=== PATIENT | female | born 1970 | race Two or more races ===

== ENCOUNTER 2020-07-19 18:47 | Emergency (ER) | payer MEDICAID ==
[~2020-07-19] VITALS: Ht 149.9 cm; Wt 66.7 kg
[~2020-07-19 18:47] MED LIST: Furosemide PO; LAC30LQ PO; OME20GT PO; SPIR25TA88 PO
[2020-07-19] MEDS ORDERED: SODIUM CHLORIDE 0.9% 1,000 ML IV ONE (19:21)
[2020-07-19] MEDS ORDERED: MORPHINE SULFATE 4 MG/ML SYR/VIAL IV ONE (19:30)
[2020-07-19 23:20] LABS: Basophils # (auto) 0.1 10 ^3/uL (0-0.2); Eosinophils # (auto) 0.2 10 ^3/uL (0-0.8); Hemoglobin 12.8 g/dL (12.2-16.2); Monocytes # (auto) 0.7 10 ^3/uL (0-1.3); Neutrophils # (auto) 3.5 10 ^3/uL (1.6-8.6); Nucleated Red Blood Cells % 0.1 %; Platelet Count (auto) 59 10^3/uL (140-450)
[2020-07-19 23:23] LABS: Basophils % (auto) 1.1 % (0.0-2.0); Eosinophils % (auto) 4.2 % (0.0-7.0); Hematocrit 36.8 % (36.0-46.0); Lymphocytes # (auto) 0.8 10 ^3/uL (0.4-5.4); Lymphocytes % (auto) 15.2 % (10.0-50.0); Mean Corpuscular Hemoglobin 38.1 pg (28.0-32.0); Mean Corpuscular Hgb Conc. 34.8 g/dL (32.0-36.0); Mean Corpuscular Volume 109.3 fL (80.0-100.0); Monocytes % (auto) 12.5 % (0.0-12.0); Red Blood Cells 3.37 10^6/uL (4.0-5.20); White Blood Cell 5.3 10^3/uL (4.4-10.8)
[2020-07-19 23:38] LABS: BUN/Creatinine Ratio 7.7; Calcium 7.8 mg/dL (8.5-10.1); Potassium 3.1 mmol/L (3.5-5.1)
[2020-07-19 23:41] LABS: Bilirubin, Total 7.8 mg/dL (0.2-1.0)
[2020-07-20] MEDS ORDERED: ONDANSETRON HCL 4 MG/2 ML VIAL ONE (02:21)
[2020-07-20] MEDS ORDERED: ONDANSETRON HCL 4 MG/2 ML VIAL IV ONE (02:30)
[2020-07-20 04:00] VITALS: BP 93/58
[2020-07-20] MEDS ORDERED: FUROSEMIDE 40 MG/4 ML VIAL IV ONE (04:00)
[2020-07-20] MEDS ORDERED: SPIRONOLACTONE 25 MG TAB PO ONE (04:00)
== END 2020-07-20 06:00 | disposition home or self-care (01) ==
LOC: ER 18:47
DX: K74.60 Unspecified cirrhosis of liver (principal); K80.20 Calculus of gallbladder without cholecystitis without obstruction; R60.1 Generalized edema; Z79.899 Other long term (current) drug therapy
CPT/HCPCS: 36415; 74176; 80053; 82150; 83605; 83690; 84702; 85025; 96374; 96375; 99284; J1940; J2270; J2405

== ENCOUNTER 2020-08-05 00:28 | Inpatient (IN) | payer MEDICAID ==
[2020-08-05] VITALS (7 sets, daily range): BP systolic 100–121; BP diastolic 54–63
[~2020-08-05] VITALS: Ht 149.9 cm; Wt 54.6 kg
[2020-08-05] MEDS ORDERED: HYDROcodone-ACET 10/325MG TAB PO ONE (02:00)
[2020-08-05 02:36] LABS: Urine Bacteria FEW /hpf (None Seen); Urine Blood Negative /uL (Negative); Urine Hyaline Cast MOD /lpf (0 - 2); Urine Mucus FEW (None Seen); Urine Specific Gravity 1.024 (1.001-1.035); Urine WBC 11 /hpf (0 - 5)
[2020-08-05 03:43] LABS: Eosinophils # (auto) 0.1 10 ^3/uL (0-0.8); Hemoglobin 11.6 g/dL (12.2-16.2); Lymphocytes # (auto) 0.5 10 ^3/uL (0.4-5.4); Monocytes # (auto) 0.9 10 ^3/uL (0-1.3); Nucleated Red Blood Cells % 0.1 %
[2020-08-05 03:46] LABS: Basophils # (auto) 0 10 ^3/uL (0-0.2); Basophils % (auto) 0.5 % (0.0-2.0); Hematocrit 32.7 % (36.0-46.0); Mean Corpuscular Hemoglobin 37.3 pg (28.0-32.0); Mean Corpuscular Hgb Conc. 35.3 g/dL (32.0-36.0); Mean Corpuscular Volume 105.7 fL (80.0-100.0); Monocytes % (auto) 10.7 % (0.0-12.0); Neutrophils # (auto) 6.9 10 ^3/uL (1.6-8.6); Neutrophils % (auto) 81.8 % (37.0-80.0); White Blood Cell 8.4 10^3/uL (4.4-10.8)
[2020-08-05 04:03] LABS: Lactic Acid w/Reflex 2.4 mmol/L (0.4-2.0)
[2020-08-05 04:04] LABS: Albumin 1.9 g/dL (3.4-5.0); Calcium 8.2 mg/dL (8.5-10.1); Potassium 4.2 mmol/L (3.5-5.1)
[2020-08-05 04:07] LABS: BUN/Creatinine Ratio 10.7; Bilirubin, Total 7.9 mg/dL (0.2-1.0); Total Protein 7.2 g/dL (6.4-8.2)
[2020-08-05 04:16] LABS: Platelet Count (auto) 45 10^3/uL (140-450)
[2020-08-05] MEDS ORDERED: SODIUM CHLORIDE 0.9% 1,000 ML IV SCH (06:45)
[2020-08-05] MEDS ORDERED: MORPHINE SULFATE 4 MG/ML SYR/VIAL IV PRN (07:00)
[2020-08-05] MEDS ORDERED: ONDANSETRON HCL 4 MG/2 ML VIAL IV PRN (07:00)
--- NOTE | 2020-08-05 08:30 | NUR ---
MS admit from ER [place] admitted to Telemetry unit after SBAR received. Patient oriented to Virginia Fong, primary RN, unit, room, bed, and unit policies regarding patient care and visiting hours.Patient placed on bedside oxygen, weighed by bedscale and encouraged to call if they need something. All questions and concerns addressed, patient verbalized understanding. Note: PT IS AWARE OF NPO STATUS.
[2020-08-05] MEDS: cefTRIAXone 1GM/50ML D5W 50 ML IV SCH (09:17)
[2020-08-05] MEDS ORDERED: PANTOPRAZOLE 40 MG/10 ML VIAL INJ IV SCH (10:00)
[2020-08-05 11:03] LABS: INR 1.95 (0.9-1.15)
--- NOTE | 2020-08-05 12:55 | NUR ---
PAGED DR BUENROSTRO RE: PT'S LOW PLATELETS AND ELEVATED INR. MD INFORMED THAT PT IS SCHEDULED FOR PARACENTESIS, BUT PER RADIOLOGY PLATELETS NEEDS TO BE CORRECTED FIRST. PARACENTESIS WILL BE RESCHEDULED FOR TOMORROW. NEW ORDER RECEIVED.
[2020-08-05] MEDS: SODIUM CHLORIDE 0.9% 1,000 ML IV SCH (13:15)
[2020-08-05] MEDS ORDERED: PHYTONADIONE (VIT K)10 MG/ML 1ML VIAL SUBCUT ONE (13:15)
[2020-08-05] MEDS ORDERED: PHYTONADIONE(VitK) ORAL Susp 10mg/10ml(1mg/ml) PO ONE (13:15)
[2020-08-05] MEDS ORDERED: FURO20TA3 PO (15:15)
[2020-08-05] MEDS ORDERED: POTA-180 PO (15:15)
[2020-08-05] MEDS ORDERED: SPIR100T4 PO (15:15)
--- NOTE | 2020-08-05 17:30 | NUR ---
PLATELETS TRANSFUSION IN PROGRESS PT RESTING COMFORTABLY. DENIES PAIN OR SOB PT INFORMED OF SIGNS AND SYMPTOMS OR BLOOD TRANSFUSION REACTION AND IS INSTRUCTED TO CALL FOR ASSISTANCE. VERBALIZED UNDERSTANDING.
[2020-08-05] MEDS: LACTULOSE 20Gm/30ML SOLN PO SCH (18:02)
[2020-08-06] MEDS: LACTULOSE 20Gm/30ML SOLN PO SCH ×4 (00:35→18:58)
[2020-08-06 05:00] VITALS: BP 97/49
[2020-08-06] MEDS: SODIUM CHLORIDE 0.9% 1,000 ML IV SCH (05:55)
[2020-08-06 06:49] LABS: Basophils # (auto) 0 10 ^3/uL (0-0.2); Eosinophils # (auto) 0.2 10 ^3/uL (0-0.8); Hemoglobin 11.1 g/dL (12.2-16.2); Monocytes # (auto) 0.6 10 ^3/uL (0-1.3)
[2020-08-06 06:52] LABS: Basophils % (auto) 0.8 % (0.0-2.0); Eosinophils % (auto) 3.3 % (0.0-7.0); Hematocrit 31.8 % (36.0-46.0); Lymphocytes # (auto) 0.8 10 ^3/uL (0.4-5.4); Lymphocytes % (auto) 12.7 % (10.0-50.0); Mean Corpuscular Hemoglobin 36.8 pg (28.0-32.0); Mean Corpuscular Hgb Conc. 34.7 g/dL (32.0-36.0); Mean Corpuscular Volume 105.9 fL (80.0-100.0); Monocytes % (auto) 10.6 % (0.0-12.0); Neutrophils # (auto) 4.3 10 ^3/uL (1.6-8.6); Neutrophils % (auto) 72.6 % (37.0-80.0); Nucleated Red Blood Cells % 0.1 %; Platelet Count (auto) 61 10^3/uL (140-450); Red Blood Cells 3.01 10^6/uL (4.0-5.20); Red Cell Distribution Width 13.9 % (11.8-14.3)
[2020-08-06 07:08] LABS: Calcium 7.8 mg/dL (8.5-10.1); Magnesium 1.8 mg/dL (1.6-2.6); Potassium 4.7 mmol/L (3.5-5.1)
[2020-08-06 07:14] LABS: Albumin 1.6 g/dL (3.4-5.0); BUN/Creatinine Ratio 15.2; Total Protein 6.5 g/dL (6.4-8.2)
[2020-08-06 07:19] LABS: INR 1.85 (0.9-1.15)
--- NOTE | 2020-08-06 07:30 | NUR ---
Opening Shift Note Assumed patient care from NOC RN. Patient currently sitting up in bed, eating. Patient informed that she is currently to be NPO for possible procedure. Tray removed. Patient verbalized understanding; safety precautions in place, call light within reach, will continue to monitor.
--- NOTE | 2020-08-06 07:52 | NUR ---
US Called Spoke with Juanis, informed that patient has eaten breakfast despite being NPO. Per Juanis, patient is still okay to proceed with paracentesis and will be taken after 0900.
[2020-08-06 08:39] VITALS: BP 100/64
[2020-08-06] MEDS: FAMOTIDINE (10MG/ML) 2ML VL IV SCH (09:11)
[2020-08-06] MEDS: cefTRIAXone 1GM/50ML D5W 50 ML IV SCH (09:11)
--- NOTE | 2020-08-06 09:30 | NUR ---
patient Off Unit Patient off unit for procedure. No signs of distress at time of departure.
--- NOTE | 2020-08-06 09:45 | NUR ---
PT IN ULTRASOUND FOR A PARACENTESIS BY DR ROMERO. 500 ML OF ASCITES FLUID REMOVED. NOT SENT TO LAB PER DR BUENROSTRO
--- NOTE | 2020-08-06 10:00 | NUR ---
Patient Returned to Unit Patient returned to unit from radiology. No signs of distress at this time. Respirations even and unlabored. Safety precautions in place, will continue to monitor.
--- NOTE | 2020-08-06 10:30 | NUR ---
at Bedside Dr. Davis at bedside discussing plan of care with patient. Addendum: 08/06/20 at 1830 by EVA LANDIS RN RN All questions answered, patient verbalized understanding.
[2020-08-06] MEDS ORDERED: SODIUM CHLORIDE 0.9% 1,000 ML IV ONE (12:00)
[2020-08-06] MEDS ORDERED: PHYTONADIONE(VitK) ORAL Susp 10mg/10ml(1mg/ml) PO ONE (12:15)
[2020-08-06 12:30] VITALS: BP 106/60
--- NOTE | 2020-08-06 13:57 | NUR ---
I called [facility] and spoke with Jaquelin, she said they have no beds available right now but to fax information and they will place patient on their bed board. Provided her with contact information for Dr. Davis and the nurse's station. Faxed requested information to [facility]. I faxed clinical information and transfer order to [facility] as well.
--- NOTE | 2020-08-06 14:10 | NUR ---
I called [facility] and spoke with Latasha-provided her with contact information for Dr. Davis and the nurse's station-I let Dr. Davis know that [facility] may be contacting her. Latasha confirmed that she received the transfer packet I faxed.
--- NOTE | 2020-08-06 15:14 | NUR ---
SS Call Received call from Mayra regarding signature for possible transfer to [facility]. Signature obtained and fax sent to CYNTHIA Nunez.
[2020-08-06] MEDS: metroNIDAZOLE 500MG/100ML 100 ML IV SCH ×2 (15:51→22:00)
[2020-08-06 17:03] VITALS: BP 98/51
--- NOTE | 2020-08-06 17:07 | NUR ---
I called [facility] ([phone]) and spoke with Yue, placed patient on will-call pending transfer to [facility] ([facility] form previously faxed).
[2020-08-06 20:00] VITALS: BP 118/60
[2020-08-06 22:00] VITALS: BP 118/60
[2020-08-07 05:00] VITALS: BP 111/61
[2020-08-07 05:48] LABS: INR 1.88 (0.9-1.15)
[2020-08-07 05:53] LABS: BUN/Creatinine Ratio 8.8; Bilirubin, Total 6.6 mg/dL (0.2-1.0); Calcium 7.4 mg/dL (8.5-10.1); Potassium 3.5 mmol/L (3.5-5.1)
[2020-08-07] MEDS: metroNIDAZOLE 500MG/100ML 100 ML IV SCH ×3 (05:55→22:17)
[2020-08-07] MEDS: LACTULOSE 20Gm/30ML SOLN PO SCH ×4 (05:55→17:35)
--- NOTE | 2020-08-07 07:30 | NUR ---
Opening Shift Note: Assumed care of patient, awake and alert. No S/S of distress/SOB or pain. Bed in lowest locked position, side rails up x 2, call light within reach. Patient instructed on POC and to call for assist PRN, will continue to monitor for changes Q1hr and PRN.
[2020-08-07 08:23] VITALS: BP 112/64
[2020-08-07] MEDS: cefTRIAXone 1GM/50ML D5W 50 ML IV SCH (09:00)
[2020-08-07] MEDS: FAMOTIDINE (10MG/ML) 2ML VL IV SCH (09:01)
--- NOTE | 2020-08-07 09:47 | NUR ---
Spoke with Siomara SCHWARTZ regarding pending transfer.
[2020-08-07] MEDS ORDERED: PHYTONADIONE(VitK) ORAL Susp 10mg/10ml(1mg/ml) PO SCH (10:00)
[2020-08-07] MEDS ORDERED: TEMAZEPAM 15 MG CAP PO PRN (10:45)
[2020-08-07] MEDS ORDERED: traMADol HCL 50 MG TAB PO PRN (10:45)
[2020-08-07] MEDS ORDERED: traMADol HCL 50 MG TAB PO ONE (10:45)
[2020-08-07 12:44] VITALS: BP 109/60
--- NOTE | 2020-08-07 13:15 | NUR ---
PATIENT TOLERATED LUNCH. PER MD ORDERS, DIET ADVANCED.
--- NOTE | 2020-08-07 14:12 | NUR ---
RUBBER [employer]AP [employer] WEEKEND Received a page from Latasha with [facility] at 8:26am advising me they never received the patient transfer and return agreement form on Sunday08/06/20. Informed Latasha form will be faxed to them. Received a second page from Carolina with [facility] at 12:51 advising me the form was incomplete and ask be to include the transferring facility name on the form and the social security number of the patient. Informed JANEEN Hester social security is needed. JANEEN Hester informed me per patient she does not remember her social security number and her is unable to find social security card. Placed a follow up called to Carolina with [facility] informing her patient does not remember social security number and does not know where her social security card is at. Carolina with [facility] advised me to document on form patient is unable to recall social security number at that should be okay. Per Carolina with [facility] a bed has been requested and will contact me at 14:30 for an update.
--- NOTE | 2020-08-07 14:35 | NUR ---
FLAP MAKER WEEKEND Placed follow up called to Carolina with [facility] at 14:30. Bed is pending and will contact bedside nurse or page me upon accepting bed. [facility] is ON WILL CALL. Informed JANEEN Hester
[2020-08-07 16:11] VITALS: BP 106/56
--- NOTE | 2020-08-07 18:50 | NUR ---
CLOSING NOTE: Patient resting in bed. No S/S of distress at this time. Care endorsed.
[2020-08-07 22:00] VITALS: BP 124/68
[2020-08-08] MEDS: LACTULOSE 20Gm/30ML SOLN PO SCH (00:16)
--- NOTE | 2020-08-08 00:44 | NUR ---
Patient is alert and Oriented x 4. Patient to be transfer to [facility] via [facility] ambulance. Report given to Tessie VERNON at [facility]..
== END 2020-08-08 00:35 | disposition short-term general hospital (02) | DRG 280 ==
LOC: ER 00:30 → OVERFLOW 00:31 → WEST WING 08:19
PROVIDERS: ADMIT Nurse Practitioner; ATTEND Internal Medicine
PROC: 30233R1 Transfusion of Nonautologous Platelets into Peripheral Vein, Percutaneous Approach (ICD-10-PCS; 2020-08-05)
PROC: 0W9G3ZZ Drainage of Peritoneal Cavity, Percutaneous Approach (ICD-10-PCS; principal; 2020-08-06)
DX: K70.31 Alcoholic cirrhosis of liver with ascites (principal); K80.20 Calculus of gallbladder without cholecystitis without obstruction; E43 Unspecified severe protein-calorie malnutrition; D69.6 Thrombocytopenia, unspecified; K76.6 Portal hypertension; D68.9 Coagulation defect, unspecified; F10.20 Alcohol dependence, uncomplicated; Y90.9 Presence of alcohol in blood, level not specified; D68.4 Acquired coagulation factor deficiency; J44.9 Chronic obstructive pulmonary disease, unspecified; J98.11 Atelectasis; K57.30 Diverticulosis of large intestine without perforation or abscess without bleeding; K85.20 Alcohol induced acute pancreatitis without necrosis or infection; Z80.1 Family history of malignant neoplasm of trachea, bronchus and lung; Z80.3 Family history of malignant neoplasm of breast; Z80.41 Family history of malignant neoplasm of ovary; Z80.8 Family history of malignant neoplasm of other organs or systems; Z81.8 Family history of other mental and behavioral disorders; Z82.0 Family history of epilepsy and other diseases of the nervous system; Z82.3 Family history of stroke; Z82.49 Family history of ischemic heart disease and other diseases of the circulatory system; Z82.5 Family history of asthma and other chronic lower respiratory diseases; Z82.62 Family history of osteoporosis; Z83.3 Family history of diabetes mellitus; Z68.24 Body mass index [BMI] 24.0-24.9, adult
CPT/HCPCS: 10022; 36415; 71250; 74176; 76705; 76942; 78226; 80048; 80053; 81001; 82140; 82150; 82247; 83605; 83690; 83735; 85025; 85610; 86850; 86900; 86901; C9113; G0378; J0696; J2405; J3430; J3490

== ENCOUNTER 2021-11-05 22:36 | Inpatient (IN) | payer MEDICAID, OTHER ==
[~2021-11-05] VITALS: Ht 149.9 cm; Wt 59.3 kg
[~2021-11-05 22:36] MED LIST changes: +FURO20TA3 PO; -Furosemide PO; +POTA-180 PO; +SPIR100T4 PO; -SPIR25TA88 PO
[2021-11-06 00:02] LABS: Albumin 1.6 g/dL (3.4-5.0); Potassium 3.3 mmol/L (3.5-5.1)
[2021-11-06 00:05] LABS: BUN/Creatinine Ratio 9.1; Bilirubin, Total 9.6 mg/dL (0.2-1.0); Total Protein 6.8 g/dL (6.4-8.2)
[2021-11-06] MEDS ORDERED: fentaNYL CITRATE 100 MCG/2 ML VL IV ONE (04:15)
[2021-11-06 04:40] LABS: INR 2.53 (0.9-1.15)
[2021-11-06] MEDS ORDERED: ONDANSETRON HCL 4 MG/2 ML VIAL IV PRN (05:00)
[2021-11-06] MEDS ORDERED: MORPHINE SULFATE 4 MG/ML SYR/VIAL IV PRN (05:00)
[2021-11-06] MEDS ORDERED: ACETAMINOPHEN 325 MG TAB PO PRN (05:00)
[2021-11-06] MEDS ORDERED: HYDROcodone-ACET 5/325MG TAB PO PRN (05:00)
[2021-11-06] MEDS ORDERED: ALBUMIN 25% 100 ML IV ONE (05:00)
[2021-11-06] MEDS ORDERED: SODIUM CHLORIDE 0.9% 1,000 ML IV SCH (05:00)
[2021-11-06 05:15] LABS: Hemoglobin 11.7 g/dL (12.2-16.2)
[2021-11-06 05:16] LABS: Hematocrit 33.4 % (36.0-46.0); Mean Corpuscular Hemoglobin 37.5 pg (28.0-32.0); Mean Corpuscular Hgb Conc. 35.1 g/dL (32.0-36.0); Mean Corpuscular Volume 106.9 fL (80.0-100.0); Red Blood Cells 3.13 10^6/uL (4.0-5.20); Red Cell Distribution Width 14.5 % (11.8-14.3); White Blood Cell 5.6 10^3/uL (4.4-10.8)
[2021-11-06 05:21] LABS: Basophils % (manual) 0 (0.0-2.0); Blast Cells 0; Metamyelocytes % 0; Myelocytes % 0; Promyelocytes % 0; Reactive Lymphocytes 0
[2021-11-06 05:58] LABS: Urine Bacteria MOD /hpf (None Seen); Urine Blood Negative /uL (Negative); Urine Hyaline Cast MOD /lpf (0 - 2); Urine Mucus MODERATE (None Seen); Urine Specific Gravity 1.034 (1.001-1.035); Urine WBC 7 /hpf (0 - 5)
[2021-11-06 06:39] LABS: Basophils # (auto) 0 10 ^3/uL (0-0.2); Basophils % (auto) 0.9 % (0.0-2.0); Eosinophils # (auto) 0.6 10 ^3/uL (0-0.8); Eosinophils % (auto) 10.8 % (0.0-7.0); Hematocrit 29.6 % (36.0-46.0); Hemoglobin 10.6 g/dL (12.2-16.2); Lymphocytes # (auto) 0.8 10 ^3/uL (0.4-5.4); Lymphocytes % (auto) 14.3 % (10.0-50.0); Mean Corpuscular Hemoglobin 38.4 pg (28.0-32.0); Mean Corpuscular Volume 106.5 fL (80.0-100.0); Monocytes # (auto) 0.6 10 ^3/uL (0-1.3); Monocytes % (auto) 11.4 % (0.0-12.0); Neutrophils # (auto) 3.4 10 ^3/uL (1.6-8.6); Neutrophils % (auto) 62.6 % (37.0-80.0); Nucleated Red Blood Cells % 0.1 %; Red Blood Cells 2.77 10^6/uL (4.0-5.20); Red Cell Distribution Width 14.7 % (11.8-14.3); White Blood Cell 5.5 10^3/uL (4.4-10.8)
[2021-11-06] MEDS ORDERED: MORPHINE SULFATE INJECTION 2 MG/ML SYRG IV PRN (06:45)
[2021-11-06] MEDS ORDERED: NITROGLYCERIN 0.4 MG SL TAB SL PRN (06:45)
[2021-11-06] MEDS: LACTULOSE 20Gm/30ML SOLN PO SCH ×3 (06:51→18:00)
[2021-11-06 06:53] LABS: Albumin 1.4 g/dL (3.4-5.0); Calcium 6.9 mg/dL (8.5-10.1); Potassium 3.2 mmol/L (3.5-5.1)
[2021-11-06 06:56] LABS: BUN/Creatinine Ratio 10.4; Bilirubin, Total 9.4 mg/dL (0.2-1.0); Total Protein 6.4 g/dL (6.4-8.2)
[2021-11-06 07:03] LABS: Band Neutrophils % (manual) 2; Eosinophils % (manual) 6 (0-7); Lymphocytes % (manual) 8 (10.0-50.0); Monocytes % (manual) 3 (0-12)
[2021-11-06] MEDS: POTASSIUM CHL 20MEQ/100ML 100 ML IV SCH ×2 (08:41→10:42)
[2021-11-06] MEDS: FAMOTIDINE (10MG/ML) 2ML VL IV SCH ×2 (10:00→23:10)
[2021-11-06] MEDS ORDERED: ASCORBIC ACID 500 MG TAB PO SCH (10:00)
[2021-11-06] MEDS ORDERED: ZINC SULFATE 220mg CAP or TAB PO SCH (10:00)
[2021-11-06] MEDS: MULTIPLE VITAMIN TAB PO SCH (10:00)
[2021-11-06] MEDS ORDERED: PHYTONADIONE (VIT K)10 MG/ML 1ML VIAL SUBCUT ONE (13:00)
[2021-11-06 23:00] VITALS: BP 128/57
[2021-11-06] MEDS ORDERED: SPIR25TA8 PO (23:18)
[2021-11-07 05:00] VITALS: BP 113/56
[2021-11-07] MEDS: LACTULOSE 20Gm/30ML SOLN PO SCH ×5 (06:48→23:44)
[2021-11-07 07:51] LABS: Basophils # (auto) 0.1 10 ^3/uL (0-0.2); Basophils % (auto) 1.3 % (0.0-2.0); Eosinophils # (auto) 0.4 10 ^3/uL (0-0.8); Eosinophils % (auto) 7.6 % (0.0-7.0); Hematocrit 30.1 % (36.0-46.0); Hemoglobin 10.3 g/dL (12.2-16.2); Lymphocytes # (auto) 0.9 10 ^3/uL (0.4-5.4); Lymphocytes % (auto) 19.1 % (10.0-50.0); Mean Corpuscular Hemoglobin 36.7 pg (28.0-32.0); Mean Corpuscular Hgb Conc. 34.2 g/dL (32.0-36.0); Mean Corpuscular Volume 107.4 fL (80.0-100.0); Monocytes # (auto) 0.5 10 ^3/uL (0-1.3); Monocytes % (auto) 10.5 % (0.0-12.0); Neutrophils % (auto) 61.5 % (37.0-80.0); Nucleated Red Blood Cells % 0.2 %; Red Cell Distribution Width 14.5 % (11.8-14.3); White Blood Cell 4.9 10^3/uL (4.4-10.8)
[2021-11-07 08:13] LABS: INR 2.07 (0.9-1.15); Partial Thromboplastin Time 38.3 sec (23.6-33.0)
[2021-11-07 08:15] VITALS: BP 95/56
[2021-11-07 09:00] VITALS: BP 95/56
[2021-11-07] MEDS: MULTIPLE VITAMIN TAB PO SCH (09:36)
[2021-11-07] MEDS: FAMOTIDINE (10MG/ML) 2ML VL IV SCH ×2 (09:36→22:44)
[2021-11-07] MEDS ORDERED: PNEUMOCOCCAL VACC POLYS 25 MCG/0.5 ML VIAL IM ONE (10:00)
[2021-11-07] MEDS ORDERED: INFLUENZA QUAD 2021-2022 0.5 ML SYRG IM ONE (10:00)
[2021-11-07] MEDS ORDERED: PHYTONADIONE (VIT K)10 MG/ML 1ML VIAL SUBCUT ONE (10:15)
[2021-11-07 13:00] VITALS: BP 104/55
[2021-11-07 17:00] VITALS: BP 119/69
[2021-11-07 22:00] VITALS: BP 138/61
[2021-11-08] VITALS (7 sets, daily range): BP systolic 94–101; BP diastolic 55–67
[2021-11-08] MEDS: LACTULOSE 20Gm/30ML SOLN PO SCH ×3 (06:00→18:00)
[2021-11-08 07:14] LABS: INR 2.1 (0.9-1.15); Partial Thromboplastin Time 38.4 sec (23.6-33.0)
[2021-11-08 07:26] LABS: Calcium 7.2 mg/dL (8.5-10.1); Potassium 3.4 mmol/L (3.5-5.1)
[2021-11-08 07:28] LABS: BUN/Creatinine Ratio 11.1
[2021-11-08] MEDS: FAMOTIDINE (10MG/ML) 2ML VL IV SCH ×2 (10:33→21:47)
[2021-11-08] MEDS: MULTIPLE VITAMIN TAB PO SCH (10:33)
[2021-11-09 05:00] VITALS: BP 92/51
[2021-11-09] MEDS: LACTULOSE 20Gm/30ML SOLN PO SCH ×5 (06:00→23:41)
[2021-11-09 08:20] VITALS: BP 90/55
[2021-11-09] MEDS: FAMOTIDINE (10MG/ML) 2ML VL IV SCH ×2 (09:48→22:56)
[2021-11-09] MEDS: MULTIPLE VITAMIN TAB PO SCH (09:48)
[2021-11-09 13:00] VITALS: BP 89/51
[2021-11-09 17:00] VITALS: BP 93/53
[2021-11-09] MEDS ORDERED: POTASSIUM EFFERVESENT TAB 25 MEQ PO ONE (21:15)
[2021-11-09 22:00] VITALS: BP 94/51
[2021-11-10] MEDS: LACTULOSE 20Gm/30ML SOLN PO SCH ×5 (05:39→23:13)
[2021-11-10 07:18] LABS: Potassium 3.9 mmol/L (3.5-5.1)
[2021-11-10 07:21] LABS: Calcium 7.5 mg/dL (8.5-10.1)
[2021-11-10] MEDS: POTASSIUM EFFERVESENT TAB 25 MEQ PO SCH (10:18)
[2021-11-10] MEDS: MULTIPLE VITAMIN TAB PO SCH (10:18)
[2021-11-10] MEDS: FAMOTIDINE (10MG/ML) 2ML VL IV SCH ×2 (10:18→21:06)
[2021-11-10] MEDS: FUROSEMIDE 40 MG TAB PO SCH (11:51)
[2021-11-10 12:52] VITALS: BP 93/57
[2021-11-10 22:00] VITALS: BP 102/61
[2021-11-11 05:00] VITALS: BP 106/56
[2021-11-11] MEDS: LACTULOSE 20Gm/30ML SOLN PO SCH ×3 (05:16→19:07)
[2021-11-11 09:00] VITALS: BP 107/55
[2021-11-11] MEDS: POTASSIUM EFFERVESENT TAB 25 MEQ PO SCH (09:57)
[2021-11-11] MEDS: FAMOTIDINE (10MG/ML) 2ML VL IV SCH (09:57)
[2021-11-11] MEDS: FUROSEMIDE 40 MG TAB PO SCH (09:57)
[2021-11-11] MEDS: MULTIPLE VITAMIN TAB PO SCH (09:57)
[2021-11-11] MEDS ORDERED: SPIR50TA5 PO (12:30)
[2021-11-11] MEDS ORDERED: FURO40TA4 PO (12:30)
[2021-11-11] MEDS ORDERED: LACT10SO3 PO (12:30)
[2021-11-11] MEDS ORDERED: POTA-180 PO (12:46)
[2021-11-11 13:00] VITALS: BP 112/62
[2021-11-11 17:00] VITALS: BP 110/46
== END 2021-11-11 19:45 | disposition home or self-care (01) | DRG 280 ==
LOC: ER 22:39 → OVERFLOW 11-06 06:41 → WEST WING 11-06 21:50
PROVIDERS: ADMIT Nurse Practitioner Family; ATTEND Internal Medicine Nephrology
PROC: 30233K1 Transfusion of Nonautologous Frozen Plasma into Peripheral Vein, Percutaneous Approach (ICD-10-PCS; 2021-11-07)
PROC: 30233R1 Transfusion of Nonautologous Platelets into Peripheral Vein, Percutaneous Approach (ICD-10-PCS; principal; 2021-11-08)
PROC: 0W9G3ZZ Drainage of Peritoneal Cavity, Percutaneous Approach (ICD-10-PCS; 2021-11-08)
DX: K70.31 Alcoholic cirrhosis of liver with ascites (principal); G93.41 Metabolic encephalopathy; K72.90 Hepatic failure, unspecified without coma; E43 Unspecified severe protein-calorie malnutrition; D69.6 Thrombocytopenia, unspecified; D68.69 Other thrombophilia; E88.09 Other disorders of plasma-protein metabolism, not elsewhere classified; Z20.822 Contact with and (suspected) exposure to COVID-19; E87.6 Hypokalemia; Z68.26 Body mass index [BMI] 26.0-26.9, adult; Z79.899 Other long term (current) drug therapy; Z80.1 Family history of malignant neoplasm of trachea, bronchus and lung; Z80.3 Family history of malignant neoplasm of breast; Z80.41 Family history of malignant neoplasm of ovary; Z80.8 Family history of malignant neoplasm of other organs or systems; Z81.8 Family history of other mental and behavioral disorders; Z82.0 Family history of epilepsy and other diseases of the nervous system; Z82.3 Family history of stroke; Z82.49 Family history of ischemic heart disease and other diseases of the circulatory system; Z82.5 Family history of asthma and other chronic lower respiratory diseases; Z82.62 Family history of osteoporosis; Z83.3 Family history of diabetes mellitus
CPT/HCPCS: 36415; 49083; 76700; 76942; 80048; 80053; 81001; 82140; 83690; 85007; 85025; 85027; 85610; 85730; 86850; 86900; 86901; 87426; 96365; 96375; G0378; J2405; J3430; J3480; J3490; P9047

== ENCOUNTER 2021-12-02 12:35 | Inpatient (IN) | payer OTHER ==
[~2021-12-02] VITALS: Ht 149.9 cm; Wt 52.0 kg
[~2021-12-02 12:35] MED LIST changes: +FURO40TA4 PO; +LACT10SO3 PO; +SPIR25TA8 PO; +SPIR50TA5 PO
[2021-12-02 14:46] LABS: Basophils # (auto) 0 10 ^3/uL (0-0.2); Hemoglobin 10.7 g/dL (12.2-16.2); Monocytes % (auto) 13.2 % (0.0-12.0)
[2021-12-02 14:48] LABS: Basophils % (auto) 0.9 % (0.0-2.0); Eosinophils # (auto) 0.1 10 ^3/uL (0-0.8); Eosinophils % (auto) 1.6 % (0.0-7.0); Lymphocytes # (auto) 0.6 10 ^3/uL (0.4-5.4); Lymphocytes % (auto) 17.7 % (10.0-50.0); Mean Corpuscular Hemoglobin 38.6 pg (28.0-32.0); Mean Corpuscular Hgb Conc. 35.8 g/dL (32.0-36.0); Mean Corpuscular Volume 107.9 fL (80.0-100.0); Monocytes # (auto) 0.5 10 ^3/uL (0-1.3); Neutrophils # (auto) 2.4 10 ^3/uL (1.6-8.6); Neutrophils % (auto) 66.6 % (37.0-80.0); Nucleated Red Blood Cells % 0.3 %; Red Blood Cells 2.78 10^6/uL (4.0-5.20); Red Cell Distribution Width 15.3 % (11.8-14.3); White Blood Cell 3.6 10^3/uL (4.4-10.8)
[2021-12-02 14:59] LABS: Albumin 1.7 g/dL (3.4-5.0); Calcium 7.6 mg/dL (8.5-10.1); Potassium 3.2 mmol/L (3.5-5.1)
[2021-12-02 15:06] LABS: BUN/Creatinine Ratio 11.2; Bilirubin, Total 11.9 mg/dL (0.2-1.0); Magnesium 1.5 mg/dL (1.6-2.6); Total Protein 6.9 g/dL (6.4-8.2)
[2021-12-02] MEDS ORDERED: DOCUSATE SOD 100 MG CAP PO PRN (22:15)
[2021-12-02] MEDS ORDERED: MAGNESIUM SULFATE 1GM/100ML 100 ML IV ONE (22:15)
[2021-12-02] MEDS ORDERED: ALBUMIN 25% 100 ML IV ONE (22:15)
[2021-12-02] MEDS ORDERED: ACETAMINOPHEN 325 MG TAB PO PRN (22:15)
[2021-12-02] MEDS ORDERED: SODIUM CHLORIDE 0.9% 1,000 ML IV SCH (22:15)
[2021-12-02] MEDS ORDERED: ONDANSETRON HCL 4 MG/2 ML VIAL IV PRN (22:15)
[2021-12-02] MEDS ORDERED: HYDROcodone-ACET 5/325MG TAB PO PRN (22:15)
[2021-12-02] MEDS ORDERED: MORPHINE SULFATE INJECTION 2 MG/ML SYRG IV PRN (22:45)
[2021-12-02] MEDS ORDERED: NITROGLYCERIN 0.4 MG SL TAB SL PRN (22:45)
[2021-12-03] VITALS (8 sets, daily range): BP systolic 91–121; BP diastolic 44–58
[2021-12-03 00:49] LABS: INR 2.41 (0.9-1.15); Partial Thromboplastin Time 50.4 sec (23.6-33.0)
[2021-12-03 01:05] LABS: Urine Bacteria FEW /hpf (None Seen); Urine Blood Negative /uL (Negative); Urine Hyaline Cast MANY /lpf (0 - 2); Urine Mucus FEW (None Seen); Urine Specific Gravity 1.022 (1.001-1.035); Urine WBC 9 /hpf (0 - 5)
[2021-12-03] MEDS: POTASSIUM CHL 20MEQ/50ML 50 ML IV SCH ×2 (02:17→03:09)
[2021-12-03] MEDS ORDERED: guaiFENesin-DM 100/10mg/5ml SYR PO PRN (02:45)
[2021-12-03] MEDS: LACTULOSE 20Gm/30ML SOLN PO SCH ×3 (04:11→04:45)
[2021-12-03] MEDS: FAMOTIDINE (10MG/ML) 2ML VL IV SCH (09:34)
[2021-12-03 10:45] LABS: Hemoglobin 8.2 g/dL (12.2-16.2)
[2021-12-03 10:48] LABS: Hematocrit 22.8 % (36.0-46.0); Mean Corpuscular Hemoglobin 37.5 pg (28.0-32.0); Mean Corpuscular Hgb Conc. 36.1 g/dL (32.0-36.0); Mean Corpuscular Volume 103.8 fL (80.0-100.0)
[2021-12-03 11:01] LABS: Basophils % (manual) 0 (0.0-2.0); Blast Cells 0; Eosinophils % (manual) 0 (0-7); Metamyelocytes % 0; Myelocytes % 0; Promyelocytes % 0; Reactive Lymphocytes 0
[2021-12-03 11:15] LABS: Albumin 2.1 g/dL (3.4-5.0); Calcium 7.8 mg/dL (8.5-10.1); Potassium 3.8 mmol/L (3.5-5.1)
[2021-12-03 11:18] LABS: BUN/Creatinine Ratio 14.6
[2021-12-03 11:20] LABS: Bilirubin, Total 11.3 mg/dL (0.2-1.0); Total Protein 5.8 g/dL (6.4-8.2)
[2021-12-03 11:36] LABS: Band Neutrophils % (manual) 12; Lymphocytes % (manual) 14 (10.0-50.0); Monocytes % (manual) 12 (0-12)
[2021-12-03 11:39] LABS: Amphetamine Screen, Urine NEGATIVE (NEGATIVE); Barbiturate Scree,Urine NEGATIVE (NEGATIVE); Benzodiazephine Screen, Urine NEGATIVE (NEGATIVE); Cannabinoid Screen, Urine NEGATIVE (NEGATIVE); Cocaine Screen, Urine NEGATIVE (NEGATIVE); Opiate Scree,Urine NEGATIVE (NEGATIVE); Phencyclidine Screen, Urine NEGATIVE (NEGATIVE)
[2021-12-03] MEDS ORDERED: phytonadione 10 MG in SODIUM CHL 0.9% 50 ML IV ONE (11:45)
[2021-12-03] MEDS: SPIRONOLACTONE 25 MG TAB PO SCH (18:35)
[2021-12-03] MEDS: FUROSEMIDE 20 MG TAB PO SCH (18:35)
[2021-12-04 05:00] VITALS: BP 97/53
[2021-12-04] MEDS: SPIRONOLACTONE 25 MG TAB PO SCH ×2 (06:14→19:13)
[2021-12-04 07:02] LABS: Hemoglobin 7.2 g/dL (12.2-16.2)
[2021-12-04 07:04] LABS: Albumin 1.8 g/dL (3.4-5.0); Anion Gap 7 (5-15); Blood Urea Nitrogen 9 mg/dL (7-18); Calcium 7.1 mg/dL (8.5-10.1); Carbon Dioxide 25 mmol/L (21-32); Chloride 99 mmol/L (98-107); Glucose 67 mg/dL (74-106); Sodium 131 mmol/L (136-145)
[2021-12-04 07:07] LABS: Hematocrit 20.1 % (36.0-46.0); Mean Corpuscular Volume 102.8 fL (80.0-100.0); Red Blood Cells 1.95 10^6/uL (4.0-5.20); Red Cell Distribution Width 14.9 % (11.8-14.3)
[2021-12-04 07:09] LABS: Alanine Aminotransferase 15 U/L (13-56); Alkaline Phosphatase 85 U/L (45-117); Aspartate Aminotransferase 52 U/L (15-37); BUN/Creatinine Ratio 12.5; Bilirubin, Total 8.9 mg/dL (0.2-1.0); GFR African American 109 mL/min; GFR Non-African American 90 mL/min; Pre Albumin < 3.0 mg/dL (20.0-40.0); Total Protein 5.5 g/dL (6.4-8.2)
[2021-12-04 07:10] LABS: % Iron Saturation 42.9 % (15-50)
[2021-12-04 07:15] LABS: INR 2.26 (0.9-1.15); Partial Thromboplastin Time 55.9 sec (23.6-33.0)
[2021-12-04 07:16] LABS: Thyroid Stimulating Hormone 4.61 uIU/mL (0.358-3.74)
[2021-12-04 08:07] LABS: White Blood Cell 1.6 10^3/uL (4.4-10.8)
[2021-12-04 08:08] LABS: Band Neutrophils % (manual) 3; Basophils % (manual) 0 (0.0-2.0); Blast Cells 0; Eosinophils % (manual) 2 (0-7); Lymphocytes % (manual) 26 (10.0-50.0); Metamyelocytes % 0; Monocytes % (manual) 15 (0-12); Myelocytes % 0; Promyelocytes % 0; Reactive Lymphocytes 0
[2021-12-04 08:09] LABS: Ferritin 509.2 ng/mL (10-322)
[2021-12-04 08:30] VITALS: BP 95/48
[2021-12-04] MEDS: FAMOTIDINE (10MG/ML) 2ML VL IV SCH (09:42)
[2021-12-04] MEDS: FUROSEMIDE 20 MG TAB PO SCH (09:42)
[2021-12-04] MEDS ORDERED: ALBUMIN 25% 100 ML IV ONE (12:00)
[2021-12-04 12:30] VITALS: BP 80/44
[2021-12-04 14:39] VITALS: BP 95/54
[2021-12-04 16:50] VITALS: BP 96/50
[2021-12-04 22:00] VITALS: BP 99/48
[2021-12-05 05:27] LABS: Hematocrit 20.6 % (36.0-46.0); Hemoglobin 7.4 g/dL (12.2-16.2)
[2021-12-05 05:32] LABS: Mean Corpuscular Hemoglobin 37.1 pg (28.0-32.0); Mean Corpuscular Hgb Conc. 35.8 g/dL (32.0-36.0); Mean Corpuscular Volume 103.5 fL (80.0-100.0); Red Blood Cells 1.99 10^6/uL (4.0-5.20)
[2021-12-05] MEDS: SPIRONOLACTONE 25 MG TAB PO SCH ×2 (06:08→18:46)
[2021-12-05 06:44] LABS: White Blood Cell 1.4 10^3/uL (4.4-10.8)
[2021-12-05 06:45] LABS: Basophils % (manual) 0 (0.0-2.0); Blast Cells 0; Eosinophils % (manual) 0 (0-7); Metamyelocytes % 0; Myelocytes % 0; Promyelocytes % 0; Reactive Lymphocytes 0
[2021-12-05 08:41] LABS: Band Neutrophils % (manual) 3; Lymphocytes % (manual) 17 (10.0-50.0)
[2021-12-05 08:42] LABS: Monocytes % (manual) 14 (0-12)
[2021-12-05 09:00] VITALS: BP 87/54
[2021-12-05] MEDS: FAMOTIDINE (10MG/ML) 2ML VL IV SCH (09:50)
[2021-12-05] MEDS: FUROSEMIDE 20 MG TAB PO SCH (09:52)
[2021-12-05 11:28] LABS: Free T4 (Free Thyroxine) 1.02 ng/dL (0.89-1.76)
[2021-12-05 11:29] LABS: Folate (Folic Acid) 8.3 ng/mL (5.38-24)
[2021-12-05] MEDS ORDERED: FILGRASTIM (TBO) 300 MCG/0.5 ML SYRG SC ONE (11:30)
[2021-12-05] MEDS ORDERED: POTASSIUM CHL 20 Meq TABLET PO ONE (11:30)
[2021-12-05] MEDS: Ensure Enlive Strawberry 8oz Bottle PO SCH ×2 (12:00→18:00)
[2021-12-05 13:25] LABS: Hepatitis A Ab IgM Negative
[2021-12-05 13:31] LABS: Hepatitis B Core IgM Negative
[2021-12-05 13:46] LABS: Hepatitis C Antibody Negative (Negative)
[2021-12-05] MEDS ORDERED: SODIUM FERR GLUC 62.5MG/5ML 125 MG in SODIUM CHL 0.9% 100 ML IV ONE (14:00)
[2021-12-05] MEDS ORDERED: LACTULOSE 20Gm/30ML SOLN PO PRN (14:45)
[2021-12-05 17:30] VITALS: BP 89/44
[2021-12-05 22:00] VITALS: BP 107/65
[2021-12-06 05:00] VITALS: BP 96/48
[2021-12-06] MEDS: SPIRONOLACTONE 25 MG TAB PO SCH ×2 (05:46→18:57)
[2021-12-06 06:09] LABS: Hemoglobin 7.5 g/dL (12.2-16.2); Red Blood Cells 2.04 10^6/uL (4.0-5.20); White Blood Cell 10.2 10^3/uL (4.4-10.8)
[2021-12-06 06:16] LABS: Hematocrit 21.1 % (36.0-46.0); Mean Corpuscular Hemoglobin 36.7 pg (28.0-32.0); Mean Corpuscular Hgb Conc. 35.5 g/dL (32.0-36.0); Mean Corpuscular Volume 103.5 fL (80.0-100.0); Red Cell Distribution Width 16.1 % (11.8-14.3)
[2021-12-06 06:48] LABS: Potassium 3.7 mmol/L (3.5-5.1)
[2021-12-06 06:57] LABS: BUN/Creatinine Ratio 9.1; Calcium 7.3 mg/dL (8.5-10.1)
[2021-12-06] MEDS: Ensure Enlive Strawberry 8oz Bottle PO SCH ×3 (08:00→18:00)
[2021-12-06 08:11] LABS: Basophils % (manual) 0 (0.0-2.0); Blast Cells 0; Eosinophils % (manual) 0 (0-7); Myelocytes % 0; Promyelocytes % 0; Reactive Lymphocytes 0
[2021-12-06 08:13] LABS: Band Neutrophils % (manual) 8; Lymphocytes % (manual) 4 (10.0-50.0); Metamyelocytes % 1; Monocytes % (manual) 4 (0-12)
[2021-12-06 09:00] VITALS: BP 108/57
[2021-12-06] MEDS: FUROSEMIDE 20 MG TAB PO SCH (10:56)
[2021-12-06 13:00] VITALS: BP 108/58
[2021-12-06] MEDS: SODIUM FERR GLUC 62.5MG/5ML 125 MG in SODIUM CHL 0.9% 100 ML IV SCH (13:00)
[2021-12-06] MEDS: LACTULOSE 20Gm/30ML SOLN PO SCH ×2 (13:00→18:56)
[2021-12-06 16:51] VITALS: BP 104/57
[2021-12-06] MEDS: rifAXIMin 550 MG TAB PO SCH (21:35)
[2021-12-06 22:00] VITALS: BP 98/61
[2021-12-07] MEDS: LACTULOSE 20Gm/30ML SOLN PO SCH ×3 (00:08→12:00)
[2021-12-07 05:00] VITALS: BP 98/58
[2021-12-07] MEDS: SPIRONOLACTONE 25 MG TAB PO SCH (05:24)
[2021-12-07 06:05] LABS: Basophils # (auto) 0 10 ^3/uL (0-0.2); Basophils % (auto) 0.2 % (0.0-2.0); Eosinophils # (auto) 0 10 ^3/uL (0-0.8); Monocytes # (auto) 0.4 10 ^3/uL (0-1.3)
[2021-12-07 06:08] LABS: Eosinophils % (auto) 0.2 % (0.0-7.0); Hematocrit 20.6 % (36.0-46.0); Hemoglobin 7.3 g/dL (12.2-16.2); Lymphocytes # (auto) 0.7 10 ^3/uL (0.4-5.4); Lymphocytes % (auto) 5.5 % (10.0-50.0); Mean Corpuscular Hemoglobin 36.8 pg (28.0-32.0); Mean Corpuscular Hgb Conc. 35.3 g/dL (32.0-36.0); Mean Corpuscular Volume 104.3 fL (80.0-100.0); Monocytes % (auto) 3.3 % (0.0-12.0); Neutrophils # (auto) 11.7 10 ^3/uL (1.6-8.6); Neutrophils % (auto) 90.8 % (37.0-80.0); Nucleated Red Blood Cells % 0.3 %; Red Blood Cells 1.98 10^6/uL (4.0-5.20); Red Cell Distribution Width 16.6 % (11.8-14.3); White Blood Cell 12.9 10^3/uL (4.4-10.8)
[2021-12-07 09:57] VITALS: BP 98/60
[2021-12-07] MEDS: FUROSEMIDE 20 MG TAB PO SCH (10:29)
[2021-12-07] MEDS: Ensure Enlive Strawberry 8oz Bottle PO SCH ×2 (10:30→12:00)
[2021-12-07] MEDS: SODIUM FERR GLUC 62.5MG/5ML 125 MG in SODIUM CHL 0.9% 100 ML IV SCH (12:00)
[2021-12-07] MEDS: rifAXIMin 550 MG TAB PO SCH (12:17)
[2021-12-07] MEDS ORDERED: LACT10SO3 PO (12:30)
[2021-12-07] MEDS ORDERED: FER325T PO (12:30)
[2021-12-07] MEDS ORDERED: RIFA550T PO (12:30)
[2021-12-07 13:11] VITALS: BP 98/60
== END 2021-12-07 14:58 | disposition home or self-care (01) | DRG 280 ==
LOC: ER 12:35 → OVERFLOW 22:37 → EAST 12-03 04:20
PROVIDERS: ADMIT Nurse Practitioner Family; ATTEND Internal Medicine
PROC: 30233R1 Transfusion of Nonautologous Platelets into Peripheral Vein, Percutaneous Approach (ICD-10-PCS; principal; 2021-12-03)
PROC: 0W9G3ZZ Drainage of Peritoneal Cavity, Percutaneous Approach (ICD-10-PCS; 2021-12-04)
DX: K70.31 Alcoholic cirrhosis of liver with ascites (principal); U07.1 COVID-19; G93.41 Metabolic encephalopathy; D61.818 Other pancytopenia; E43 Unspecified severe protein-calorie malnutrition; D68.9 Coagulation defect, unspecified; J90 Pleural effusion, not elsewhere classified; E88.09 Other disorders of plasma-protein metabolism, not elsewhere classified; E83.42 Hypomagnesemia; E87.6 Hypokalemia; K59.00 Constipation, unspecified; K72.90 Hepatic failure, unspecified without coma; Z79.899 Other long term (current) drug therapy; Z80.1 Family history of malignant neoplasm of trachea, bronchus and lung; Z80.3 Family history of malignant neoplasm of breast; Z80.41 Family history of malignant neoplasm of ovary; Z80.8 Family history of malignant neoplasm of other organs or systems; Z81.8 Family history of other mental and behavioral disorders; Z82.0 Family history of epilepsy and other diseases of the nervous system; Z82.3 Family history of stroke; Z82.49 Family history of ischemic heart disease and other diseases of the circulatory system; Z82.5 Family history of asthma and other chronic lower respiratory diseases; Z82.62 Family history of osteoporosis; Z83.3 Family history of diabetes mellitus; Z86.16 Personal history of COVID-19; Z87.01 Personal history of pneumonia (recurrent)
CPT/HCPCS: 36415; 71045; 71046; 71250; 76700; 76705; 76942; 80048; 80053; 80074; 80307; 81001; 82040; 82140; 82270; 82607; 82668; 82728; 82746; 83010; 83540; 83550; 83605; 83615; 83690; 83735; 84439; 84443; 84484; 85007; 85025; 85027; 85045; 85610; 85652; 85730; 86431; 86850; 86880; 86900; 86901; 87040; 87086; 87426; 93005; 94640; G0378; J1447; J2405; J3430; J3490; P9047